=== PATIENT | female | born 1980 | race Caucasian/White ===

== ENCOUNTER 2018-10-16 09:14 | Emergency (ER) | payer OTHER ==
[~2018-10-16] VITALS: Ht 175.3 cm; Wt 95.3 kg
[2018-10-16 09:30] VITALS: BP 125/87
[2018-10-16] MEDS ORDERED: IV NORMAL SALINE 1,000ML 1,000 ML IV SCH (09:37)
--- NOTE | 2018-10-16 09:47 | PHYS DOC ---
Adult General Chief Complaint Chief Complaint: DIARRHEA HPI HPI Patient is a 38 year old female who presents with complaining of diarrhea. Patient complaining of frequent episodes of nonbloody diarrhea for the last 3 weeks and states she has had almost 10 episodes of loose stool every day with foul-smelling. The patient states she has had lower abdominal cramping pain as a constant and mild pain and rated her pain 3/10. Patient complaining of intermittent episodes of nausea and one episode of vomiting that happens several hours after taking Imodium. Patient states she had 5 episodes of diarrhea since this morning. 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 difficile. Review of Systems Review of Systems Constitutional: Denies fever or chills [] Eyes: Denies change in visual acuity, redness, or eye pain [] HENT: Denies nasal congestion or sore throat [] Respiratory: Denies cough or shortness of breath [] Cardiovascular: No additional information not addressed in HPI [] GI: Reports abdominal pain, nausea, vomiting, diarrhea [] : Denies dysuria or hematuria [] Musculoskeletal: Denies back pain or joint pain [] Integument: Denies rash or skin lesions [] Neurologic: Denies headache, focal weakness or sensory changes [] Endocrine: Denies polyuria or polydipsia [] All other systems were reviewed and found to be within normal limits, except as documented in this note. Physical Exam Physical Exam Constitutional: Well developed, well nourished, mild distress, non-toxic appearance. [] HENT: Normocephalic, atraumatic, bilateral external ears normal, oropharynx moist, no oral exudates, nose normal. [] Eyes: PERRLA, EOMI, conjunctiva normal, no discharge. [] Neck: Normal range of motion, no tenderness, supple, no stridor. [] Cardiovascular:Heart rate regular rhythm, no murmur [] Lungs & Thorax: Bilateral breath sounds clear to auscultation [] Abdomen: Bowel sounds normal, soft, no tenderness, no masses, no pulsatile masses. [] Skin: Warm, dry, no erythema, no rash. [] Back: No tenderness, no CVA tenderness. [] Extremities: No tenderness, no cyanosis, no clubbing, ROM intact, no edema. [] Neurologic: Alert and oriented X 3, normal motor function, normal sensory function, no focal deficits noted. [] Psychologic: Affect normal, judgement normal, mood normal. [] EKG EKG [] Radiology/Procedures Radiology/Procedures [] Course & Med Decision Making Course & Med Decision Making Pertinent Labs and Imaging studies reviewed. (See chart for details) Evaluation of patient in ER showed 38-year-old female patient with complaining of diarrhea for 3 weeks and possible exposures to C.Diff. Patient had unremarkable physical exam and labs. Stool for C. difficile is pending. Patient treated with IV fluid, Toradol and Zofran and felt better. Plan to discharge patient home with diagnose of gastroenteritis and pending results for C. difficile. Patient informed about plan of care and needs to follow-up with result of C diff. Dragon Disclaimer Dragon Disclaimer This electronic medical record was generated, in whole or in part, using a voice recognition dictation system. Departure Departure: Impression: Primary Impression: Gastroenteritis Disposition: HOME, SELF-CARE (@1113) Condition: IMPROVED Referrals: MAURICIO CLEMENTE MD (PCP) Patient Instructions: Clostridium Difficile Infection, Diet for Diarrhea, Adult , Viral Gastroenteritis Additional Instructions: Drink plenty of liquids Follow-up with your primary care physician tomorrow for results of C. diff Return to ER if not getting better Scripts Hydrocodone Bit/Acetaminophen (NORCO 5-325 TABLET) 1 Each Tablet 1 TAB PO PRN Q6HRS PRN for PAIN, #14 TAB 0 Refills Prov: LISA KABA MD 10/16/18 Ondansetron Hcl (ZOFRAN) 4 Mg Tablet 1 TAB PO Q6HRS for nausea and vomiting, #12 TAB Prov: LISA KABA MD 10/16/18 LISA KABA MD Oct 16, 2018 09:47
[2018-10-16 10:17] LABS: BASO % 1 % (0-3); EOS # 0.1 x10^3/uL (0.0-0.7); EOS % 1 % (0-3); HEMATOCRIT 39.8 % (36.0-47.0); HEMOGLOBIN 13.1 g/dL (12.0-15.5); LYMPH # 1.9 x10^3/uL (1.0-4.8); LYMPH % 34 % (24-48); MEAN CORPUSCULAR HEMOGLOBIN 30 pg (25-35); MEAN CORPUSCULAR HGB CONC 33 g/dL (31-37); MEAN CORPUSCULAR VOLUME 90 fL (79-100); MONO # 0.5 x10^3/uL (0.0-1.1); MONO % 8 % (0-9); NEUT # 3.2 x10^3uL (1.8-7.7); NEUT % 57 % (31-73); PLATELET COUNT 187 x10^3/uL (140-400); RED BLOOD COUNT 4.42 x10^6/uL (3.50-5.40); RED CELL DISTRIBUTION WIDTH 13.6 % (11.5-14.5); WHITE BLOOD COUNT 5.6 x10^3/uL (4.0-11.0)
[2018-10-16] MEDS ORDERED: FLUO40CA9 PO (10:18)
[2018-10-16] MEDS ORDERED: CLON0.5T PO (10:18)
[2018-10-16] MEDS ORDERED: TRAZ-120 PO (10:18)
[2018-10-16 10:29] LABS: BACTERIA,URINE FEW /HPF (0-FEW); BILIRUBIN,URINE NEG (NEG); CLARITY,URINE CLEAR; COLOR,URINE YELLOW; GLUCOSE,URINE NEG (NEG); NITRITE,URINE NEG (NEG); RBC,URINE 0 /HPF (0-2); SQUAMOUS EPITHELIAL CELL,UR FEW /LPF; UROBILINOGEN,URINE 0.2 mg/dL (0.2 mg/dL); WBC,URINE RARE /HPF (0-4)
[2018-10-16] MEDS ORDERED: ONDANSETRON PF 4 MG/2 ML VIAL. IV ONE (10:30)
[2018-10-16] MEDS ORDERED: KETOROLAC 30 MG/ML VIAL. IV ONE (10:30)
[2018-10-16 10:33] LABS: FECAL OB PT NEGATIVE (NEG)
[2018-10-16 10:35] LABS: ALBUMIN 3.5 g/dL (3.4-5.0); ALBUMIN/GLOBULIN RATIO 1.1 (1.0-1.7); CALCIUM 8.6 mg/dL (8.5-10.1); CREATININE 0.7 mg/dL (0.6-1.0); GFR 92.7; POTASSIUM 4.4 mmol/L (3.5-5.1); TOTAL BILIRUBIN 0.2 mg/dL (0.2-1.0); TOTAL PROTEIN 6.6 g/dL (6.4-8.2)
[2018-10-16] MEDS ORDERED: ONDA4TAB7 PO (11:16)
[2018-10-16] MEDS ORDERED: HYDR-3165 PO (11:16)
== END 2018-10-16 11:17 | disposition home or self-care (01) ==
LOC: ER 09:14
DX: K52.9 Noninfective gastroenteritis and colitis, unspecified (principal)
CPT/HCPCS: 36415; 80053; 81001; 81025; 82274; 83690; 85025; 87045; 87493; 96374; 96375; 99283; J1885; J2405; J7030